=== PATIENT | female | born 1975 | race Caucasian/White ===

== ENCOUNTER → 2016-08-06 | Outpatient (CLI) | payer MEDICAID ==
--- NOTE | 2016-08-07 13:43 | MM ---
Reason for exam: screening (asymptomatic). Last mammogram was performed 5 years and 4 months ago. History: Family history of breast cancer in paternal grandmother. Took hormonal contraceptives for 15 years beginning at age 17. Physical Findings: A clinical breast exam by your physician is recommended on an annual basis and results should be correlated with mammographic findings. MG 3D Screening Mammo W/Cad Bilateral CC and MLO view(s) were taken. Prior study comparison: April 19, 2011, [facility] DIGITAL BILATERAL MAMMOGRAM w/CAD. April 08, 2011, bilateral digital screening mammo w/CAD. There are scattered fibroglandular densities. No significant changes when compared with prior studies. ASSESSMENT: Benign, BI-RAD 2 RECOMMENDATION: Routine screening mammogram of both breasts in 1 year.
== END | disposition home or self-care (01) ==
LOC: RADMAMWWP 12:18
PROVIDERS: ATTEND Obstetrics & Gynecology
DX: Z12.31 Encounter for screening mammogram for malignant neoplasm of breast (principal)
CPT/HCPCS: 77063; G0202

== ENCOUNTER → 2016-08-22 | Outpatient (CLI) | payer MEDICAID ==
[2016-08-22 07:39] LABS: Basophils # (A) 0.1 k/uL (0-0.2); Basophils % (A) 1 %; CH 30.5; CHCM 35.1; Eosinophils # (A) 0.1 k/uL (0-0.7); Eosinophils % (A) 2 %; HCT 38.3 % (34.0-46.0); HDW 2.52; HGB 13.4 gm/dL (11.4-16.0); Luc # (Auto) 0.16; Luc % (Auto) 2; Lymphocytes # (A) 2.8 k/uL (1.0-4.8); Lymphocytes % (A) 39 %; MCH 30.5 pg (25.0-35.0); MCHC 34.9 g/dL (31.0-37.0); MCV 87.3 fL (80.0-100.0); Mean Platelet Volume 7.3; Monocytes # (A) 0.4 k/uL (0-1.0); Monocytes % (A) 5 %; Neutrophils # (A) 3.6 k/uL (1.3-7.7); Neutrophils % (A) 51 %; RBC 4.39 m/uL (3.80-5.40); RDW 12.5 % (11.5-15.5); WBC 7.1 k/uL (3.8-10.6); WBC (Perox) 6.99
[2016-08-22 07:49] LABS: ALT 24 U/L (9-52); AST 18 U/L (14-36); Alkaline Phosphatase 53 U/L (38-126); Anion Gap 8 mmol/L; Blood Urea Nitrogen 11 mg/dL (7-17); Calcium 9.6 mg/dL (8.4-10.2); Carbon Dioxide 29 mmol/L (22-30); Chloride 104 mmol/L (98-107); Cholesterol 191 mg/dL (<200); Glucose 84 mg/dL (74-99); HDL Cholesterol 102 mg/dL (40-60); Non-African American GFR(MDRD) >60 (>60 ml/min/1.73 sqM); Potassium 4.6 mmol/L (3.5-5.1); Sodium 141 mmol/L (137-145); Total Bilirubin 0.4 mg/dL (0.2-1.3); Total Protein 6.8 g/dL (6.3-8.2); Triglycerides 77 mg/dL (<150)
== END | disposition home or self-care (01) ==
LOC: LABWHC1 07:14
PROVIDERS: ATTEND Family Medicine
DX: E55.9 Vitamin D deficiency, unspecified (principal); M06.9 Rheumatoid arthritis, unspecified
CPT/HCPCS: 36415; 80053; 80061; 82306; 85025

== ENCOUNTER → 2017-05-02 | Outpatient (CLI) | payer MEDICAID ==
--- NOTE | 2017-05-02 10:14 | MR ---
EXAMINATION TYPE: MR knee RT wo con DATE OF EXAM: 05/02/2017 COMPARISON: 08/12/2015 HISTORY: Pain in right knee, Prior arthroscopic surgery TECHNIQUE: Multiplanar, multisequence imaging of the right knee is performed without IV contrast. FINDINGS: There is a area of marrow edema or contusion involving the posterior medial tibial plateau. There is a linear area of abnormal signal extending along the medial tibial plateau which may repres ent a macrotrabecular fracture. Medial collateral and lateral collateral ligaments are intact. There is nonvisualization of the anterior cruciate ligament. Posterior cruciate ligament intact. There is marked thinning of the medial patellar facet articular cartilage compatible with chondromala marie extending to the apex. No focal free fragment identified. Patellar and quadriceps tendons intact. Tiny amount of fluid in the suprapatellar bursa and joint spa ce of the knee. No definite meniscal tear. No sizable popliteal fossa cyst. IMPRESSION: 1. Postsurgical change 2. Large area of marrow edema involving the posterior tibia may be reactive however, there is a linea r band of abnormal signal below the articular surface which could be reactive secondary to absence of the ACL. On other etiologies include microtrabecular fracture or stress injury. Correlate clinically . 3. Absence of the ACL correlate for previous surgery 4. 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
== END | disposition home or self-care (01) ==
LOC: RADMRIMAIN 09:09
PROVIDERS: ATTEND Orthopaedic Surgery
DX: M22.41 Chondromalacia patellae, right knee (principal); Z98.890 Other specified postprocedural states

== ENCOUNTER → 2017-10-01 | Outpatient (CLI) | payer MEDICAID ==
[2017-10-01 07:49] LABS: Basophils % (A) 1 %; Eosinophils # (A) 0.1 k/uL (0-0.7); Eosinophils % (A) 2 %; HCT 39.2 % (34.0-46.0); HGB 13.4 gm/dL (11.4-16.0); Lymphocytes # (A) 2.1 k/uL (1.0-4.8); Lymphocytes % (A) 33 %; MCH 29.5 pg (25.0-35.0); MCHC 34.3 g/dL (31.0-37.0); MCV 86.1 fL (80.0-100.0); Mean Platelet Volume 7.2; Monocytes # (A) 0.4 k/uL (0-1.0); Monocytes % (A) 6 %; Neutrophils # (A) 3.6 k/uL (1.3-7.7); Neutrophils % (A) 57 %; Platelet Count 270 k/uL (150-450); RBC 4.55 m/uL (3.80-5.40); RDW 12.2 % (11.5-15.5); WBC 6.3 k/uL (3.8-10.6)
[2017-10-01 08:02] LABS: Albumin 4.1 g/dL (3.5-5.0); Calcium 9.5 mg/dL (8.4-10.2); Potassium 4.7 mmol/L (3.5-5.1); Total Bilirubin 0.3 mg/dL (0.2-1.3); Total Protein 6.3 g/dL (6.3-8.2)
[2017-10-01 08:08] LABS: T4, Free (Free Thyroxine) 0.93 ng/dL (0.78-2.19)
== END | disposition home or self-care (01) ==
LOC: LABWHC1 07:11
PROVIDERS: ATTEND Physician Assistant
DX: M06.9 Rheumatoid arthritis, unspecified (principal)
CPT/HCPCS: 36415; 80053; 80061; 84439; 84443; 85025

== ENCOUNTER → 2017-12-16 | Outpatient (CLI) | payer MEDICAID ==
[2017-12-16 09:54] LABS: Basophils % (A) 0 %; Eosinophils # (A) 0.1 k/uL (0-0.7); Eosinophils % (A) 1 %; HCT 37.2 % (34.0-46.0); HGB 12.9 gm/dL (11.4-16.0); Lymphocytes # (A) 1.2 k/uL (1.0-4.8); Lymphocytes % (A) 23 %; MCH 30.3 pg (25.0-35.0); MCHC 34.8 g/dL (31.0-37.0); MCV 87.1 fL (80.0-100.0); Mean Platelet Volume 7.3; Monocytes # (A) 0.3 k/uL (0-1.0); Monocytes % (A) 5 %; Neutrophils # (A) 3.7 k/uL (1.3-7.7); Neutrophils % (A) 69 %; Platelet Count 222 k/uL (150-450); RBC 4.27 m/uL (3.80-5.40); RDW 12.4 % (11.5-15.5); WBC 5.3 k/uL (3.8-10.6)
[2017-12-16 10:18] LABS: Potassium 4.3 mmol/L (3.5-5.1)
== END | disposition home or self-care (01) ==
LOC: LABWHC1 09:17
PROVIDERS: ATTEND Orthopaedic Surgery
DX: Z01.812 Encounter for preprocedural laboratory examination (principal); M23.611 Other spontaneous disruption of anterior cruciate ligament of right knee
CPT/HCPCS: 36415; 80051; 85025

== ENCOUNTER → 2018-01-14 | Outpatient (CLI) | payer MEDICAID ==
--- NOTE | 2018-01-14 15:53 | BD ---
EXAMINATION TYPE: Axial Bone Density DATE OF EXAM: 01/14/2018 COMPARISON: 2012 CLINICAL HISTORY: post menopausal Height: 5'4 Weight: 148 FRAX RISK QUESTIONS: History of Fracture in Adulthood: y Secondary Osteoporosis: 3. Menopause before 45: y Rheumatoid Arthritis: y RISK FACTORS HISTORY OF: Postmenopausal woman: y Take estrogen and/or progesterone medications: y How lon years Frequent falls: y MEDICATIONS: Thyroid Medications: Which medication: Levothyroxine How Lon months Additional Medications: rheumatoid, gerd Additional History: EXAM MEASUREMENTS: Bone mineral densitometry was performed using the MeBeam System. Bone mineral density as measured about the Lumbar spine is: ----- L1-L4(G/cm2): 1.416 T Score Values are as follows: ----- L2: 1.5 ----- L3: 3.1 ----- L4: 1.9 ----- L1-L4: 2.0 Bone mineral density has: Increased 4.5 % since study of: 12/22/2012 Bone mineral density about the R hip (g/cm2): 1.024 Bone mineral density about the L hip (g/cm2): 1.054 T Score values are as follows: -----R Neck: -0.1 -----L Neck: 0.1 -----R Total: 0.0 -----L Total: 0.4 Bone mineral density has: Increased 2.9% since study of: 12/22/2012 IMPRESSION: No evidence for osteoporosis or osteopenia. NOTE: T-SCORE=SD OF THE YOUNG ADULT MEAN.
--- NOTE | 2018-01-16 12:27 | MM ---
Reason for exam: screening (asymptomatic). Last mammogram was performed 1 year and 5 months ago. History: Patient is postmenopausal and history of other cancer. Family history of breast cancer in paternal grandmother. Took hormonal contraceptives for 15 years beginning at age 17. Physical Findings: A clinical breast exam by your physician is recommended on an annual basis and results should be correlated with mammographic findings. MG 3D Screening Mammo W/Cad Bilateral CC and MLO view(s) were taken. Prior study comparison: August 06, 2016, bilateral MG 3d screening mammo w/cad. April 19, 2011, [facility] BILATERAL MAMMOGRAM w/CAD. The breast tissue is heterogeneously dense. This may lower the sensitivity of mammography. No suspicious abnormality. No significant changes when compared with prior studies. ASSESSMENT: Negative, BI-RAD 1 RECOMMENDATION: Routine screening mammogram of both breasts in 1 year.
== END | disposition home or self-care (01) ==
LOC: RADMAMWWP 15:04
PROVIDERS: ATTEND Obstetrics & Gynecology
DX: Z12.31 Encounter for screening mammogram for malignant neoplasm of breast (principal); Z13.820 Encounter for screening for osteoporosis; N95.1 Menopausal and female climacteric states
CPT/HCPCS: 77063; 77067; 77080

== ENCOUNTER → 2018-11-12 | Outpatient (CLI) | payer MEDICAID ==
--- NOTE | 2018-11-12 13:55 | US ---
EXAMINATION TYPE: US venous doppler duplex LE DATE OF EXAM: 11/12/2018 1:29 PM COMPARISON: NONE CLINICAL HISTORY: M79.662 Pain in left lower leg. SIDE PERFORMED: Bilateral TECHNIQUE: The lower extremity deep venous system is examined utilizing real time linear array sonog jordin with graded compression, doppler sonography and color-flow sonography. VESSELS IMAGED: External Iliac Vein (EIV) Common Femoral Vein Deep Femoral Vein Greater Saphenous Vein * Femoral Vein Popliteal Vein Small Saphenous Vein * Proximal Calf Veins (* superficial vessels) Grayscale, color doppler, spectral doppler imaging performed of the deep veins of the lower extremiti es. There is normal flow, compressibility, vascular waveforms. Right Leg: Negative for DVT Left Leg: Negative for DVT Preliminary phoned to office immediately following exam. IMPRESSION: No sonographic evidence of deep venous thrombosis within either of the visualized bilate ral lower extremities.
== END | disposition home or self-care (01) ==
LOC: RADUSWWP 12:22
PROVIDERS: ATTEND Family Medicine
DX: M79.662 Pain in left lower leg (principal)
CPT/HCPCS: 93970

== ENCOUNTER → 2019-02-19 | Outpatient (CLI) | payer MEDICAID ==
--- NOTE | 2019-02-23 11:22 | MM ---
Reason for exam: screening (asymptomatic). Last mammogram was performed 1 year and 1 month ago. History: Patient is postmenopausal and history of other cancer. Family history of breast cancer in paternal grandmother at age 90. Took hormonal contraceptives for 15 years beginning at age 17. Took estrogen for 7 years beginning at age 37. Physical Findings: A clinical breast exam by your physician is recommended on an annual basis and results should be correlated with mammographic findings. MG Screening Mammo w CAD Bilateral CC and MLO view(s) were taken. Prior study comparison: January 14, 2018, bilateral MG 3d screening mammo w/cad. August 06, 2016, bilateral MG 3d screening mammo w/cad. There are scattered fibroglandular densities. Asymmetric density medial right CC view is increased, possible superimposition shadow. ASSESSMENT: Incomplete: need additional imaging evaluation, BI-RAD 0 RECOMMENDATION: Special view mammogram of the right breast. (3D) If lesion persists on supplemental views, image directed ultrasound is recommended. [facility] will attempt to contact patient to return for supplemental views and ultrasound if indicated.
== END | disposition home or self-care (01) ==
LOC: RADMAMWWP 14:41
PROVIDERS: ATTEND Obstetrics & Gynecology
DX: Z12.31 Encounter for screening mammogram for malignant neoplasm of breast (principal)
CPT/HCPCS: 77067

== ENCOUNTER → 2019-03-05 | Outpatient (CLI) | payer MEDICAID ==
--- NOTE | 2019-03-05 11:58 | MM ---
Reason for exam: additional evaluation requested from abnormal screening. Last mammogram was performed less than 1 month ago. History: Patient is postmenopausal and history of other cancer. Family history of breast cancer in paternal grandmother at age 90. Took hormonal contraceptives for 15 years beginning at age 17. Took estrogen for 7 years beginning at age 37. Physical Findings: Nurse did not find any significant physical abnormalities on exam. MG 3D Work Up W/Cad RT Spot compression CC and LM view(s) were taken of the right breast. Prior study comparison: February 19, 2019, bilateral MG screening mammo w CAD. January 14, 2018, bilateral MG 3d screening mammo w/cad. The breast tissue is heterogeneously dense. This may lower the sensitivity of mammography. The previously seen abnormality resolves on additional views and appears as fibroglandular tissue compatible with summation. These results were verbally communicated with the patient and result sheet given to the patient on 03/05/19. ASSESSMENT: Negative, BI-RAD 1 RECOMMENDATION: Return to routine screening mammogram schedule for both breasts.
== END | disposition home or self-care (01) ==
LOC: RADMAMWWP 10:31
PROVIDERS: ATTEND Obstetrics & Gynecology
DX: R92.8 Other abnormal and inconclusive findings on diagnostic imaging of breast (principal)
CPT/HCPCS: 77061; 77065

== ENCOUNTER → 2019-03-12 | Outpatient (CLI) | payer MEDICAID ==
[2019-03-12 07:51] LABS: Basophils % (A) 0 %; Eosinophils % (A) 0 %; HCT 40.1 % (34.0-46.0); HGB 13.4 gm/dL (11.4-16.0); Lymphocytes # (A) 1.5 k/uL (1.0-4.8); Lymphocytes % (A) 12 %; MCH 29.7 pg (25.0-35.0); MCHC 33.4 g/dL (31.0-37.0); MCV 88.9 fL (80.0-100.0); Mean Platelet Volume 7.9; Monocytes # (A) 0.3 k/uL (0-1.0); Monocytes % (A) 3 %; Neutrophils % (A) 84 %; Platelet Count 272 k/uL (150-450); RBC 4.51 m/uL (3.80-5.40); RDW 12.1 % (11.5-15.5)
[2019-03-12 18:57] LABS: African American GFR (CKD) 104.7 (60.0-200.0); Albumin 4.7 g/dL (3.80-4.90); Albumin/Globulin Ratio 2.61 (1.60-3.17); Anion Gap 11.2 mmol/L (4.00-12.00); BUN/Creat Ratio 18.75 Ratio (12.00-20.00); Calcium 9.5 mg/dL (8.7-10.3); Carbon Dioxide 27.8 mmol/L (21.6-31.8); Chol/HDL Ratio 1.71; Globulin 1.8 g/dL (1.6-3.3); LDL Cholesterol,Calculated 66.8 mg/dL (0.0-131.0); Non-African American GFR(CKD) 90.3 (60.0-200.0); Potassium 4.4 mmol/L (3.5-5.5); Total Bilirubin 0.4 mg/dL (0.2-1.2); Total Protein 6.5 g/dL (6.2-8.2); VLDL Calculation 11.2 mg/dL (5.00-40.00)
== END | disposition home or self-care (01) ==
LOC: LABWHC1 06:50
PROVIDERS: ATTEND Family Medicine
DX: E78.5 Hyperlipidemia, unspecified (principal)
CPT/HCPCS: 36415; 80053; 80061; 84443; 85025

== ENCOUNTER → 2019-03-22 | Outpatient (CLI) | payer MEDICAID ==
--- NOTE | 2019-03-23 06:58 | MR ---
EXAMINATION TYPE: MR hip LT wo con DATE OF EXAM: 03/22/2019 COMPARISON: Outside left hip x-ray November 24, 2018. HISTORY: Lt hip pain x 4 mos Standard multiplanar, multisequence MRI departmental protocol Multiplanar, multisequence images of the pelvis focus on the left hip were acquired. FINDINGS: There is mild axial joint space loss in both hips. There is mild acetabular spurring presen t bilaterally. There are small hip joint effusions slightly larger on the left. Left hip shows asymme tric subchondral cystic change involving the superior lateral acetabulum coronal image 8 measuring ne magali 10 mm transversely. This corresponds to sagittal image 15 measuring 7 mm AP diameter. Bone marro w signal intensity is preserved without suspicious edema. No serpiginous low T1 signal to suggest pablo scular necrosis. Femoral head shape is maintained. Small degree of fluid signal level of the greater trochanters bilaterally greater on the left most prominent coronal image 12 near posterior fiber inse rtion. No suspicious groin hernia or adenopathy is present bilaterally. Muscle bulk bilateral thighs is symm etric and felt within normal limits. Uterus is surgically absent or markedly atrophic. No suspicious bowel dilatation. No concerning pelvi c fluid collection. Urinary bladder is felt within normal limits. IMPRESSION: Asymmetric degenerative change to the left hip as detailed above. [id number] left g reater than right bilateral greater trochanteric bursitis is suspected.
== END | disposition home or self-care (01) ==
LOC: RADMRIMAIN 16:54
PROVIDERS: ATTEND Orthopaedic Surgery
DX: M16.12 Unilateral primary osteoarthritis, left hip (principal)

== ENCOUNTER 2019-04-21 12:04 | Emergency (ER) | payer MEDICAID ==
[2019-04-21 12:10] VITALS: RESP 18; TEMP 98
[2019-04-21 12:23] LABS: Glucose,Whole Blood 82 mg/dL (75-99)
--- NOTE | 2019-04-21 12:54 | ED ---
General Adult HPI - General Chief complaint: Eye Problems Stated complaint: blurred vision Time Seen by Provider: 04/21/19 12:35 Source: patient, RN notes reviewed, old records reviewed Mode of arrival: wheelchair Limitations: no limitations - History of Present Illness Initial comments: This is a 44-year-old female who presents emergency Department with a past medical history significant for rheumatoid arthritis. Patient states today while she was upstairs she had a little area that was flickering with triangle shaped and eventually expanded to form a crescent shape and eventually the crescent shape expanded until a 1 out of her peripheral vision. Patient states when she shut her eye she could still see it. Patient states it was mostly in her right lateral peripheral vision. Patient states she had a mild headache after that. Patient's blood pressure was taken at that time it was mildly elevated. Patient states she normally does not have high blood pressure. Patient states now she feels a little anxious but doesn't have a headache and has no numbness or weakness and had no speech disturbance. Patient denies any recent fever chills or cough per patient denies any abdominal pain patient denies nausea or vomiting. Patient denies any drug use or any [id number] medication use. - Related Data Home Medications Medication Instructions Recorded Confirmed Estradiol 1 mg PO DAILY 01/22/16 04/21/19 Hydroxychloroquine Sulfate 200 mg PO DAILY 01/22/16 04/21/19 [Plaquenil] Pantoprazole [Protonix] 40 mg PO DAILY 01/22/16 04/21/19 traMADol HCL [Tramadol HCl] 50 mg PO TID PRN 01/22/16 04/21/19 Cetirizine HCl [Zyrtec] 10 mg PO DAILY 04/21/19 04/21/19 Ibuprofen [Motrin Ib] 800 mg PO Q8H PRN 04/21/19 04/21/19 Levothyroxine Sodium [Synthroid] 75 mcg PO DAILY 04/21/19 04/21/19 valACYclovir HCL [Valtrex] 1,000 mg PO Q12H PRN 04/21/19 04/21/19 Allergies Allergy/AdvReac Type Severity Reaction Status Date / Time adhesive Allergy Rash/Hives Verified 04/21/19 14:25 nickel Allergy Unknown Verified 04/21/19 14:25 metals Allergy Rash/Hives Uncoded 12/25/17 06:32 Review of Systems ROS Statement: Those systems with pertinent positive or pertinent negative responses have been documented in the HPI. ROS Other: All systems not noted in ROS Statement are negative. Past Medical History Past Medical History: Osteoarthritis (OA), Rheumatoid Arthritis (RA) History of Any Multi-Drug Resistant Organisms: None Reported Past Surgical History: Hysterectomy, Orthopedic Surgery Additional Past Surgical History / Comment(s): right knee scope x2, ACL repair Past Anesthesia/Blood Transfusion Reactions: Previous Problems w/ Anesthesia Additional Past Anesthesia/Blood Transfusion Reaction / Comment(s): hypoglycemia Past Psychological History: No Psychological Hx Reported Smoking Status: Former smoker Past Alcohol Use History: None Reported Past Drug Use History: None Reported - Past Family History Father Family Medical History: Cancer Additional Family Medical History / Comment(s): lymphoma General Exam - General Exam Comments Initial Comments: GENERAL: Patient is well-developed and well-nourished. Patient is nontoxic and well- hydrated and is in no acute distress. ENT: Neck is soft and supple. No significant lymphadenopathy is noted. Oropharynx is clear. Moist mucous membranes. Neck has full range of motion without eliciting any pain. EYES: The sclera were anicteric and conjunctiva were pink and moist. Extraocular movements were intact and pupils were equal round and reactive to light. Eyelids were unremarkable. PULMONARY: Unlabored respirations. Good breath sounds bilaterally. No audible rales rhonchi or wheezing was noted. CARDIOVASCULAR: There is a regular rate and rhythm without any murmurs gallops or rubs. ABDOMEN: Soft and nontender with normal bowel sounds. SKIN: Skin is clear with no lesions or rashes and otherwise unremarkable. NEUROLOGIC: Patient is alert and oriented x3. Cranial nerves II through XII are grossly intact. Motor and sensory are also intact. Normal speech, volume and content. Symmetrical smile. MUSCULOSKELETAL: Normal extremities with adequate strength and full range of motion. LYMPHATICS: No significant lymphadenopathy is noted PSYCHIATRIC: Normal psychiatric evaluation. Limitations: no limitations Course Vital Signs 04/21/19 04/21/19 04/21/19 12:05 12:24 14:29 Temperature 98.0 F Pulse Rate 83 79 66 Respiratory 18 18 18 Rate Blood Pressure 158/85 150/99 124/78 O2 Sat by Pulse 98 100 98 Oximetry Medical Decision Making - Medical Decision Making EKG shows normal sinus rhythm at 82 bpm CA interval 156 QRS is 98 QT interval 382 QTC is 446 per patient's EKG shows no ST segment elevation or depression Computed tomography scan showed no acute abnormality. Patient had no further symptoms while in the emergency department. Patient was able ambulate without problem and she was a symptomatically upon discharge - Lab Data Result diagrams: 04/21/19 13:01 04/21/19 13:01 Lab Results 04/21/19 04/21/19 04/21/19 Range/Units 12:22 13:01 13:01 WBC 9.0 (3.8-10.6) k/uL RBC 4.73 (3.80-5.40) m/uL Hgb 13.9 (11.4-16.0) gm/dL Hct 40.8 (34.0-46.0) % MCV 86.2 (80.0-100.0) fL MCH 29.3 (25.0-35.0) pg MCHC 34.0 (31.0-37.0) g/dL RDW 12.2 (11.5-15.5) % Plt Count 289 (150-450) k/uL Neutrophils % 67 % Lymphocytes % 25 % Monocytes % 5 % Eosinophils % 1 % Basophils % 1 % Neutrophils # 6.0 (1.3-7.7) k/uL Lymphocytes # 2.2 (1.0-4.8) k/uL Monocytes # 0.4 (0-1.0) k/uL Eosinophils # 0.1 (0-0.7) k/uL Basophils # 0.1 (0-0.2) k/uL Sodium 136 L (137-145) mmol/L Potassium 3.9 (3.5-5.1) mmol/L Chloride 99 (98-107) mmol/L Carbon Dioxide 27 (22-30) mmol/L Anion Gap 10 mmol/L BUN 15 (7-17) mg/dL Creatinine 0.75 (0.52-1.04) mg/dL Est GFR (CKD-EPI)AfAm >90 (>60 ml/min/1.73 sqM) Est GFR (CKD-EPI)NonAf >90 (>60 ml/min/1.73 sqM) Glucose 87 (74-99) mg/dL POC Glucose (mg/dL) 82 (75-99) mg/dL POC Glu Veneer Stapler ID Salgat, Diane Calcium 9.5 (8.4-10.2) mg/dL Magnesium 1.9 (1.6-2.3) mg/dL Total Bilirubin 0.3 (0.2-1.3) mg/dL AST 22 (14-36) U/L ALT 12 (4-34) U/L Alkaline Phosphatase 70 (38-126) U/L Total Protein 7.3 (6.3-8.2) g/dL Albumin 4.6 (3.5-5.0) g/dL Urine Opiates Screen (NotDetected) Ur Oxycodone Screen (NotDetected) Urine Methadone Screen (NotDetected) Ur Propoxyphene Screen (NotDetected) Ur Barbiturates Screen (NotDetected) U Tricyclic Antidepress (NotDetected) Ur Phencyclidine Scrn (NotDetected) Ur Amphetamines Screen (NotDetected) U Methamphetamines Scrn (NotDetected) U Benzodiazepines Scrn (NotDetected) Urine Cocaine Screen (NotDetected) U Marijuana (THC) Screen (NotDetected) 04/21/19 Range/Units 14:38 WBC (3.8-10.6) k/uL RBC (3.80-5.40) m/uL Hgb (11.4-16.0) gm/dL Hct (34.0-46.0) % MCV (80.0-100.0) fL MCH (25.0-35.0) pg MCHC (31.0-37.0) g/dL RDW (11.5-15.5) % Plt Count (150-450) k/uL Neutrophils % % Lymphocytes % % Monocytes % % Eosinophils % % Basophils % % Neutrophils # (1.3-7.7) k/uL Lymphocytes # (1.0-4.8) k/uL Monocytes # (0-1.0) k/uL Eosinophils # (0-0.7) k/uL Basophils # (0-0.2) k/uL Sodium (137-145) mmol/L Potassium (3.5-5.1) mmol/L Chloride (98-107) mmol/L Carbon Dioxide (22-30) mmol/L Anion Gap mmol/L BUN (7-17) mg/dL Creatinine (0.52-1.04) mg/dL Est GFR (CKD-EPI)AfAm (>60 ml/min/1.73 sqM) Est GFR (CKD-EPI)NonAf (>60 ml/min/1.73 sqM) Glucose (74-99) mg/dL POC Glucose (mg/dL) (75-99) mg/dL POC Glu Veneer Stapler ID Calcium (8.4-10.2) mg/dL Magnesium (1.6-2.3) mg/dL Total Bilirubin (0.2-1.3) mg/dL AST (14-36) U/L ALT (4-34) U/L Alkaline Phosphatase (38-126) U/L Total Protein (6.3-8.2) g/dL Albumin (3.5-5.0) g/dL Urine Opiates Screen Not Detected (NotDetected) Ur Oxycodone Screen Not Detected (NotDetected) Urine Methadone Screen Not Detected (NotDetected) Ur Propoxyphene Screen Not Detected (NotDetected) Ur Barbiturates Screen Not Detected (NotDetected) U Tricyclic Antidepress Not Detected (NotDetected) Ur Phencyclidine Scrn Not Detected (NotDetected) Ur Amphetamines Screen Not Detected (NotDetected) U Methamphetamines Scrn Not Detected (NotDetected) U Benzodiazepines Scrn Not Detected (NotDetected) Urine Cocaine Screen Not Detected (NotDetected) U Marijuana (THC) Screen Not Detected (NotDetected) Disposition Clinical Impression: Visual disturbance, [place], Headache, Hypertension Disposition: HOME SELF-CARE Condition: Good Instructions (If sedation given, give patient instructions): General Headache (ED), Hypertension (ED) Additional Instructions: 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 Patient should return if symptoms return or for any worsening symptoms Is patient prescribed a controlled substance at d/c from ED?: No Referrals: Husam Reaves MD [Primary Care Provider] - 1-2 days Time of Disposition: 15:19
[2019-04-21] MEDS ORDERED: LORazepam 2 MG/ML INJ IV STA (13:06)
[2019-04-21] MEDS ORDERED: SODIUM CHLORIDE 0.9% 500 ML 500 ML IV ONE (13:06)
[2019-04-21 13:19] LABS: Basophils # (A) 0.1 k/uL (0-0.2); Basophils % (A) 1 %; Eosinophils # (A) 0.1 k/uL (0-0.7); Eosinophils % (A) 1 %; HCT 40.8 % (34.0-46.0); HGB 13.9 gm/dL (11.4-16.0); Lymphocytes # (A) 2.2 k/uL (1.0-4.8); Lymphocytes % (A) 25 %; MCH 29.3 pg (25.0-35.0); MCV 86.2 fL (80.0-100.0); Mean Platelet Volume 7.4; Monocytes # (A) 0.4 k/uL (0-1.0); Monocytes % (A) 5 %; Neutrophils % (A) 67 %; Platelet Count 289 k/uL (150-450); RBC 4.73 m/uL (3.80-5.40); RDW 12.2 % (11.5-15.5)
[2019-04-21 13:36] LABS: ALT 12 U/L (4-34); AST 22 U/L (14-36); African American GFR (CKD) >90 (>60 ml/min/1.73 sqM); Albumin 4.6 g/dL (3.5-5.0); Alkaline Phosphatase 70 U/L (38-126); Anion Gap 10 mmol/L; Blood Urea Nitrogen 15 mg/dL (7-17); Calcium 9.5 mg/dL (8.4-10.2); Carbon Dioxide 27 mmol/L (22-30); Chloride 99 mmol/L (98-107); Glucose 87 mg/dL (74-99); Magnesium 1.9 mg/dL (1.6-2.3); Non-African American GFR(CKD) >90 (>60 ml/min/1.73 sqM); Potassium 3.9 mmol/L (3.5-5.1); Sodium 136 mmol/L (137-145); Total Bilirubin 0.3 mg/dL (0.2-1.3); Total Protein 7.3 g/dL (6.3-8.2)
--- NOTE | 2019-04-21 14:21 | CT ---
EXAMINATION TYPE: CT brain wo con DATE OF EXAM: 04/21/2019 COMPARISON: NONE HISTORY: headache, high blood pressure, visual disturbance CT DLP: 995.8 mGycm. Automated Exposure Control for Dose Reduction was Utilized. TECHNIQUE: CT scan of the head is performed without contrast. FINDINGS: There is no acute intracranial hemorrhage, mass effect, or midline shift identified. No suspicious extra-axial fluid collection. The ventricles and sulci are within normal limits in size fo r the patient's age. The globes are intact and the visualized sinuses are clear. IMPRESSION: No acute intracranial hemorrhage, mass effect, or midline shift is seen.
[2019-04-21 14:31] VITALS: BP 124/78; PULSE 66
[2019-04-21 15:02] LABS: Amphetamine Screen,Urine Not Detected (NotDetected); Barbiturate Screen,Urine Not Detected (NotDetected); Benzodiazepines Screen,Urine Not Detected (NotDetected); Cocaine Screen,Urine Not Detected (NotDetected); Methadone Screen, Urine Not Detected (NotDetected); Opiate Screen,Urine Not Detected (NotDetected); Oxycodone Screen, Urine Not Detected (NotDetected); Phencyclidine Screen,Urine Not Detected (NotDetected); Tricyclic Antidepressant,Urine Not Detected (NotDetected); Urn Cannabinoid Scrn Not Detected (NotDetected)
== END 2019-04-21 15:34 | disposition home or self-care (01) ==
LOC: EC 12:04
DX: H53.459 Other localized visual field defect, unspecified eye (principal); I10 Essential (primary) hypertension; R51 Headache; M06.9 Rheumatoid arthritis, unspecified; Z79.3 Long term (current) use of hormonal contraceptives; Z79.899 Other long term (current) drug therapy; Z87.891 Personal history of nicotine dependence; Z91.048 Other nonmedicinal substance allergy status; Z98.890 Other specified postprocedural states
CPT/HCPCS: 36415; 93005; 80053; 83735; 85025; 80306; 70450; 99285; 96374; J2060

== ENCOUNTER → 2019-10-15 | Outpatient (CLI) | payer MEDICAID ==
[2019-10-15 09:22] LABS: Basophils % (A) 1 %; Eosinophils # (A) 0.1 k/uL (0-0.7); Eosinophils % (A) 1 %; HCT 39.9 % (34.0-46.0); HGB 12.9 gm/dL (11.4-16.0); Lymphocytes # (A) 1.4 k/uL (1.0-4.8); Lymphocytes % (A) 27 %; MCH 28.8 pg (25.0-35.0); MCHC 32.3 g/dL (31.0-37.0); MCV 89.2 fL (80.0-100.0); Mean Platelet Volume 7.5; Monocytes # (A) 0.2 k/uL (0-1.0); Monocytes % (A) 5 %; Neutrophils # (A) 3.3 k/uL (1.3-7.7); Neutrophils % (A) 64 %; Platelet Count 229 k/uL (150-450); RBC 4.48 m/uL (3.80-5.40); RDW 12.4 % (11.5-15.5); WBC 5.1 k/uL (3.8-10.6)
[2019-10-15 17:00] LABS: African American GFR (CKD) 90.8 (60.0-200.0); Albumin 4.2 g/dL (3.80-4.90); Albumin/Globulin Ratio 2.21 (1.60-3.17); Anion Gap 8.7 mmol/L (4.00-12.00); BUN/Creat Ratio 11.11 Ratio (12.00-20.00); Calcium 9.5 mg/dL (8.7-10.3); Carbon Dioxide 27.3 mmol/L (21.6-31.8); Chol/HDL Ratio 1.94; Globulin 1.9 g/dL (1.6-3.3); Non-African American GFR(CKD) 78.3 (60.0-200.0); Potassium 4.1 mmol/L (3.5-5.5); Total Bilirubin 0.3 mg/dL (0.2-1.2); Total Protein 6.1 g/dL (6.2-8.2)
[2019-10-15 17:08] LABS: T4, Free (Free Thyroxine) 1.2 ng/dL (0.80-1.80)
== END | disposition home or self-care (01) ==
LOC: LABWHC1 07:50
PROVIDERS: ATTEND Family Medicine
DX: Z20.9 Contact with and (suspected) exposure to unspecified communicable disease (principal); Z00.00 Encounter for general adult medical examination without abnormal findings
CPT/HCPCS: 36415; 80053; 80061; 84439; 84443; 85025; 86803

== ENCOUNTER → 2021-09-24 | Outpatient (CLI) | payer OTHER ==
--- NOTE | 2021-09-25 17:26 | MM ---
Reason for Exam: Screening (asymptomatic). Last mammogram was performed 2 year(s) and 7 month(s) ago. Patient History: Menarche at age 13. Patient has no children. Left ovary removed at age 37. Right ovary removed at age 37. Hysterectomy at age 37. Postmenopausal. Currently using Estrogen, beginning at age 37 for 7 years. Hormonal Contraceptives, starting at age 17 for 15 years. Paternal grandmother had breast cancer, age 90. Risk Values: Smitha 5 year model risk: 0.9%. NCI Lifetime model risk: 10.6%. Prior Study Comparison: 01/14/2018 Bilateral Screening Mammogram, [facility]. 02/19/2019 Bilateral Screening Mammogram, [facility]. 03/05/2019 Right Diagnostic Mammogram, [facility]. Tissue Density: There are scattered fibroglandular densities. Findings: Analyzed By CAD. The medial asymmetric density in the right breast remains unchanged and becomes less defined on the XCCL view. No significant change from prior exams. Unchanged small intramammary lymph node upper outer quadrant left breast. Overall Assessment: Benign, BI-RAD 2 Management: Screening Mammogram of both breasts in 1 year. 1. Patient should continue monthly self breast exams. 2. A clinical breast exam by your physician is recommended on an annual basis. 3. This exam should not preclude additional follow-up of suspicious palpable abnormalities. Electronically signed and approved by: Aislinn Flores M.D. Radiologist
== END | disposition home or self-care (01) ==
LOC: RADMAMWWP 17:04
PROVIDERS: ATTEND Obstetrics & Gynecology
DX: Z12.31 Encounter for screening mammogram for malignant neoplasm of breast (principal); Z80.3 Family history of malignant neoplasm of breast; Z78.0 Asymptomatic menopausal state
CPT/HCPCS: 77063; 77067

== ENCOUNTER → 2022-01-02 | Outpatient (CLI) | payer OTHER ==
--- NOTE | 2022-01-03 05:36 | MR ---
EXAMINATION TYPE: MR brain wo/w con DATE OF EXAM: 01/02/2022 COMPARISON: None HISTORY: Migraines with feeling of head pressure, high BP, hear pulse intermittently even when BP nor mal. CONTRAST: Standard multiplanar, multisequence MRI departmental protocol images were obtained without contrast a nd with 7 mL intravenous Gadavist gadolinium contrast. The diffusion images show no evidence of an acute infarct. Ventricles have normal size. There is no m ass effect or midline shift. No sign of intracranial hemorrhage. There are small white matter high si gnal foci in the right frontal lobe measuring up to 3 mm. There are a few scattered similar foci at t he lozano-white matter junction of the left parietal lobe. The brainstem is intact. No evidence of post erior fossa mass. Corpus callosum is intact. Sella turcica is intact. No evidence of orbital mass. The contrast images show no pathologic enhancement. There is normal enhancement of the venous sinuses . IMPRESSION: White matter high signal foci are very small and could relate to minimal microvascular ischemia. No e vidence of cortical infarct.
== END | disposition home or self-care (01) ==
LOC: RADMRIMAIN 21:45
PROVIDERS: ATTEND Family Medicine
DX: G43.909 Migraine, unspecified, not intractable, without status migrainosus (principal); I67.82 Cerebral ischemia; R90.82 White matter disease, unspecified
CPT/HCPCS: 70553; A9585

== ENCOUNTER → 2022-02-13 | Outpatient (CLI) | payer OTHER ==
--- NOTE | 2022-02-13 14:43 | FL ---
EXAMINATION TYPE: FL arthrogram hip LT DATE OF EXAM: 02/13/2022 2:16 PM CLINICAL INDICATION:Female, 47 years old with history of M25.552 PAIN IN LEFT HIP; COMPARISON: MR left hip 02/13/2022 same day. TECHNIQUE/PROCEDURE: After the procedure was explained and informed consent was obtained from the pat ient, the patient was prepped and draped in the usual sterile fashion. 1% Lidocaine was used as local anesthetic using a 25 gauge needle. A 22 gauge needle was then advanced into the left hip joint usin g fluoroscopic guidance. Approximately 9 cc of contrast was injected into the joint (an admixture of Gadavist, Isovue-300, and sterile saline). The needle was then removed and a Band-Aid was applied. The patient tolerated procedure well. The patient was then sent to the MR unit for MRI exam. Fluoroscopic time: 42 seconds Fluoroscopic images: 0 Radiographs taken: 4 FINDINGS: Contrast was seen filling the left hip joint. No extracapsular contrast collections were noted.. IMPRESSION: Successful left hip arthrogram. MRI left hip report to follow.
--- NOTE | 2022-02-14 06:36 | MR ---
EXAMINATION TYPE: MR hip LT w con DATE OF EXAM: 02/13/2022 COMPARISON: 03/22/2019 HISTORY: Left hip pain, limited movement, locking. Arthrogram. CONTRAST: Standard multiplanar, multisequence MRI departmental protocol images were obtained without contrast a nd with 1 mL intravenous Gadavist gadolinium contrast. The proximal left femur shows fairly normal signal pattern. No evidence of edema. No evidence of avas cular necrosis. There is minimal hip joint space narrowing. No focal articular cartilage defect. Ther e is a 6 mm focus of slightly increased signal on the proton density image in the acetabulum and cons istent with a small degenerative cyst. Joint capsule appears intact. There is mild acetabular spurrin g of the labrum on the lateral aspect. No evidence of filling defect in the joint capsule. Ligamentum teres appears normal. No evidence of free fluid in the pelvis. Bladder distends smoothly. Muscle bun dles around the left hip joint appear normal. No pathologic fluid collection. Iliopsoas tendon appear s intact. IMPRESSION: Minimal acetabular spurring. Otherwise negative MRI arthrogram left hip joint. No adverse change comp ared to old exam. There is an apparent 7 mm degenerative cyst in the left acetabulum on previous exam that is the same or slightly smaller.
== END | disposition home or self-care (01) ==
LOC: RADFLMAIN 13:12
PROVIDERS: ATTEND Orthopaedic Surgery
DX: M25.552 Pain in left hip (principal)
CPT/HCPCS: 27093; 73525; 73722; A9585; Q9967

== ENCOUNTER → 2023-06-24 | Outpatient (CLI) | payer OTHER ==
--- NOTE | 2023-06-24 14:52 | XR ---
EXAMINATION TYPE: XR hand complete LT DATE OF EXAM: 06/24/2023 COMPARISON: NONE HISTORY: Pain TECHNIQUE: Three views are submitted. FINDINGS: The osseous structures are intact. The joint spaces are preserved and there is no acute fracture or dislocation. Soft tissue edema surrounding the first digit. No destructive or erosive changes. IMPRESSION: 1. Soft tissue edema but no evidence of acute fracture or destructive changes.
== END | disposition home or self-care (01) ==
LOC: RADXRMAIN 14:33
PROVIDERS: ATTEND Family Medicine
DX: L03.012 Cellulitis of left finger (principal); R60.0 Localized edema

== ENCOUNTER → 2023-07-25 | Outpatient (CLI) | payer OTHER ==
--- NOTE | 2023-07-28 13:18 | MM ---
Reason for Exam: Screening (asymptomatic). Last mammogram was performed 1 year(s) and 10 month(s) ago. Patient History: Menarche at age 13. Patient has no children. Left ovary removed at age 37. Right ovary removed at age 37. Hysterectomy at age 37. Postmenopausal. Currently using Estrogen, beginning at age 37 for 7 years. Hormonal Contraceptives, starting at age 17 for 15 years. Paternal grandmother had breast cancer, age 90. Risk Values: Smitha 5 year model risk: 1.0%. NCI Lifetime model risk: 10.3%. Prior Study Comparison: 02/19/2019 Bilateral Screening Mammogram, MERGED WITH [facility]. 03/05/2019 Right Diagnostic Mammogram, MERGED WITH [facility]. 09/24/2021 Bilateral MG 3D screening mammo w/cad, MERGED WITH [facility]. Tissue Density: The breasts are heterogeneously dense, which may obscure small masses. Findings: Analyzed By CAD. There is no suspicious group of microcalcifications or new suspicious mass in either breast. Overall Assessment: Negative, BI-RAD 1 Management: Screening Mammogram of both breasts in 1 year. . Patient should continue monthly self-breast exams. A clinical breast exam by your physician is recommended on an annual basis. This exam should not preclude additional follow-up of suspicious palpable abnormalities. Note on Smitha scores and lifetime risk: 1. A Smitha score greater than 3% is considered moderate risk. If this is the case, consider specialist referral to assess eligibility for a risk reducing agent. 2. If overall lifetime risk for the development of breast cancer is 20% or higher, the patient may qualify for future screening with alternating mammogram and breast MRI. Electronically signed and approved by: Howie Pavon M.D. Radiologis
== END | disposition home or self-care (01) ==
LOC: RADMAMWWP 12:46
PROVIDERS: ATTEND Family Medicine
DX: Z12.31 Encounter for screening mammogram for malignant neoplasm of breast (principal); Z80.3 Family history of malignant neoplasm of breast; Z78.0 Asymptomatic menopausal state
CPT/HCPCS: 77063; 77067

== ENCOUNTER → 2024-04-14 | Outpatient (CLI) | payer OTHER ==
--- NOTE | 2024-04-14 14:50 | CT ---
EXAMINATION TYPE: CT brain berny wo con DATE OF EXAM: 04/14/2024 COMPARISON: Head CT dated 04/21/2019 CLINICAL INDICATION: Female, 49 years old with history of S13.4XXA G44.311 S20.229A S40.012A S30.0XXA ; PHH, trauma/ slipped on the ice today/ stiff neck TECHNIQUE: CT scan of the head and cervical spine are performed without contrast. CT DLP: 1332.[address] CTDI: mGy Automated exposure control for dose reduction was used. Findings: Head CT: Ventricles, basal cisterns and sulci over convexities within normal limits and there is no mass, mass effect or shift of midline structures. No abnormal density is seen throughout the brain parenchyma and there is no acute intra or extra-axia l hemorrhage. Posterior fossa including the brainstem, fourth ventricle and cerebellar pontine angles are grossly n ormal. The intraorbital contents appear normal and symmetric. Visualized paranasal sinuses are well aerated. CT cervical spine: Craniovertebral junction relationships and prevertebral soft tissues are normal. The cervical vertebral segments are normal in height and alignment and there is no fracture or sublux ation. There is mild disc space narrowing and spondylosis C5-6 and C6-7 levels indicating mild degenerative disc disease. The bony canal is widely patent. Secondary to mild degenerative changes of the facet joints and verte bral joints, there is mild bony neural foraminal stenosis at C3-4 and C5-6 on the right. The paraspinal soft tissues unremarkable. IMPRESSION: 1. Head CT: No acute bleed or mass effect. 2. CT cervical spine: No acute trauma. Mild Degenerative disc disease and mild osteoarthritis in the lower cervical spine as described above. [facility], , 04/14/2024 2:48 PM
--- NOTE | 2024-04-14 15:03 | XR ---
EXAMINATION TYPE: XR shoulder complete LT DATE OF EXAM: 04/14/2024 2:55 PM COMPARISON: Prior left shoulder x-ray 2014. CLINICAL INDICATION: Female, 49 years old with history of S13.4XXA G44.311 S20.229A S40.012A S30.0XXA , pain after injury. TECHNIQUE: Three views of the left shoulder are obtained. FINDINGS: There is no acute fracture/dislocation evident in the left shoulder. The acromioclavicul ar and glenohumeral joint spaces remain within normal limits. The visualized ribs are intact and unr emarkable. IMPRESSION: There is no acute fracture or dislocation in the left shoulder. [facility], , 04/14/2024 3:01 PM
--- NOTE | 2024-04-14 15:06 | XR ---
EXAMINATION TYPE: XR pelvis AP view DATE OF EXAM: 04/14/2024 2:55 PM COMPARISON: None. CLINICAL INDICATION: Female, 49 years old with history of S13.4XXA G44.311 S20.229A S40.012A S30.0XXA , injury with pain TECHNIQUE: A single AP view of the pelvis is obtained. FINDINGS: There is no acute fracture/dislocation evident in the pelvis. The hip and sacroiliac join ts appear symmetric and unremarkable. Pubic symphysis is intact. The overlying soft tissue appears u nremarkable. IMPRESSION: There is no acute fracture or dislocation in the pelvis. [facility], , 04/14/2024 3:03 PM
--- NOTE | 2024-04-14 15:07 | XR ---
EXAMINATION TYPE: XR lumbar spine 2 or 3V DATE OF EXAM: 04/14/2024 2:55 PM COMPARISON: Prior lumbar spine x-ray 2013. CLINICAL INDICATION: Female, 49 years old with history of S13.4XXA G44.311 S20.229A S40.012A S30.0XXA , pain after injury TECHNIQUE: Frontal and lateral images of the lumbar spine are obtained. FINDINGS: There are 5 lumbar type vertebral bodies redemonstrated. The lumbar spine shows stable an d satisfactory alignment without evidence of acute fracture or dislocation. Vertebral body heights an d disk space heights are stable and within normal limits. The overlying soft tissue appears unremarka ble. IMPRESSION: No acute fracture or dislocation is seen in the lumbar spine. [facility], , 04/14/2024 3:05 PM
--- NOTE | 2024-04-14 15:08 | XR ---
EXAMINATION TYPE: XR thoracic spine complete DATE OF EXAM: 04/14/2024 2:55 PM COMPARISON: None. CLINICAL INDICATION: Female, 49 years old with history of S13.4XXA G44.311 S20.229A S40.012A S30.0XXA , pain after injury TECHNIQUE: Frontal, lateral, and swimmer's view of thoracic spine are obtained. FINDINGS: Thoracic spine show satisfactory alignment without evidence of acute fracture or dislocatio n. Vertebral body heights and disc space heights are preserved. Visualized ribs are intact bilateral ly. IMPRESSION: No acute fracture or dislocation is seen in the thoracic spine. [facility], , 04/14/2024 3:06 PM
== END | disposition home or self-care (01) ==
LOC: RADCTMAIN 14:07
PROVIDERS: ATTEND Emergency Medicine
DX: S20.229A Contusion of unspecified back wall of thorax, initial encounter (principal); S13.4XXA Sprain of ligaments of cervical spine, initial encounter; S40.012A Contusion of left shoulder, initial encounter; S30.0XXA Contusion of lower back and pelvis, initial encounter; G44.311 Acute post-traumatic headache, intractable; M47.812 Spondylosis without myelopathy or radiculopathy, cervical region; M50.322 Other cervical disc degeneration at C5-C6 level
CPT/HCPCS: 70450; 72072; 72100; 72125; 72170

== ENCOUNTER → 2024-06-15 | Outpatient (CLI) | payer OTHER ==
--- NOTE | 2024-06-15 21:30 | MR ---
INDICATION: Patient age:Female; 49 years old; Reason for study: X13.4XXD; PHH. Left neck and shoulder pain, spasms, tingling in right chest startin g in right side now. COMPARISON: CT brain C-spine 04/14/2024, MR cervical spine 03/17/2013 TECHNIQUE: Multi planar, multi sequence imaging was performed of the cervical spine. No Gadolinium wa s given. FINDINGS: Alignment: The cervical vertebral bodies have preserved heights. No spondylolisthesis. Reversal of no rmal cervical lordosis. Bones: Multilevel type I Modic changes at C5-C7. Multilevel anterior osteophytosis at C5-C7. Cord: The spinal cord is unremarkable with regards to their signal intensity and morphology. Discs: Multilevel disc desiccation is present. C2-C3: No significant disc pathology. The spinal canal is patent. Uncovertebral joint hypertrophy. Ri ght-sided facet arthropathy resulting in mild right neural foraminal stenosis. The left neural forame n is patent. C3-C4: Broad-based disc bulge with minimal effacement of the anterior thecal sac. No significant cent ral canal stenosis. Right-sided facet arthropathy. Moderate right neural foramina stenosis. The left neural foramen is patent. C4-C5: Broad-based disc bulge with mild effacement of anterior thecal sac. No significant central can al stenosis. Uncovertebral joint hypertrophy. Mild bilateral neural foraminal stenosis. C5-C6: Broad-based disc bulge with moderate effacement of the anterior thecal sac and abutment of the ventral spinal cord. Resultant moderate central canal stenosis. No cord signal change at this level. Uncovertebral joint hypertrophy. Mild to moderate bilateral neural foraminal stenosis. C6-C7: Broad base disc bulge with moderate effacement of the anterior thecal sac. There is abutment o f the ventral spinal cord without signal change. Moderate central canal stenosis. Mild bilateral rony ral foraminal stenosis. Bilateral nerve root dural ectasia redemonstrated. C7-T1: Minimal broad base disc bulge without significant central canal stenosis. No neural foraminal stenosis. Bilateral nerve root dural ectasia redemonstrated. T1-T2: No significant central canal stenosis or disc herniation or disc bulge on sagittal view. There is bilateral nerve root dural ectasia redemonstrated. Other: None. IMPRESSION: Moderate multilevel disc degeneration with associated osteoarthritic changes of the cervical spine. M ost pronounced at C4-C7 as described above. [facility], , 06/15/2024 9:27 PM
== END | disposition home or self-care (01) ==
LOC: RADMRIMAIN 19:45
PROVIDERS: ATTEND Emergency Medicine
DX: S13.4XXD Sprain of ligaments of cervical spine, subsequent encounter (principal); S20.229D Contusion of unspecified back wall of thorax, subsequent encounter; S30.0XXD Contusion of lower back and pelvis, subsequent encounter; S40.012D Contusion of left shoulder, subsequent encounter; M50.323 Other cervical disc degeneration at C6-C7 level; X58.XXXD Exposure to other specified factors, subsequent encounter
CPT/HCPCS: 72141

== ENCOUNTER → 2024-08-19 | Day surgery (SDC) | payer OTHER ==
[2024-08-17 12:42] VITALS: BMI 24.3
[~2024-08-19] MED LIST: DEXAMETHASONE SOD PHOSPHATE 10 MG/ML 1 ML VIAL ONE; IOPAMIDOL M300 15ML VIAL ONE; LACTATED RINGERS 1,000 ML IV SCH
[2024-08-19 14:32] VITALS: TEMP 97.3
--- NOTE | 2024-08-19 15:46 | P.PCN ---
Description of Procedure: PROCEDURE 1. Injection of radio contrast material into cervical epidural space, cervical epidurogram, interpretation of cervical epidurogram, Cervical epidural steroid injection under fluoroscopic guidance, C6-7 (fluoroscopy images available in the radiology department ) 2. Cervical epidurogram. PREOPERATIVE DIAGNOSIS: 1- Cervical Degenerative Disc Diseases 2- Cervical radiculopathy., 3-cervical spondylosis with cervical Facet arthropathy without myelopathy.4-cervical spinal stenosis POSTOPERATIVE DIAGNOSIS: : 1- Cervical Degenerative Disc Diseases , 2- Cervical radiculopathy. 3-,cervical spondylosis with cervical Facet arthropathy without myelopathy. 4-cervical spinal stenosis ANESTHESIA: Local anesthetics infiltration. In the OR continuous pulse ox, EKG, blood pressure and verbal communication was maintained. EBL : None PROCEDURE INDICATION: The patient with neck pain and radiculitis unresponsive to conservative treatment consents for procedure. Discussed the procedure, alternatives and possible complications which may include increased pain, infection, bleeding, nerve damage, paralysis all of which could be permanent. Patient understands and all questions were answered. PROCEDURE DESCRIPTION : After getting consent patient was taken to the OR , positioned in prone position and time out was completed. A pillow was placed under the patients chest to increase the cervical interlaminar space. The cervical area was prepped and draped in the usual sterile fashion. Using anterior-posterior fluoroscopy, interlaminar space was identified and the skin over this site was marked and then infiltrated with 1% lidocaine subcutaneously. Subsequently, a 20-gauge 3-1/2-inch Tuohy epidural needle was inserted and advanced toward the epidural space with the loss of resistance technique using a syringe filled with preservative-free normal saline and guided by AP and lateral fluoroscopy. Negative CSF, negative blood, negative paresthesia. The correct needle position in the epidural space was verified with the injection of 2 mL of the water soluble contrast dye [id number]-[id number] and observing an excellent epidurogram with the epidural spread of the dye, after repeat negative aspiration 3 mL solution was injected which consists of 1 mL of preservative-free normal saline mixed with 2 mL of 20 mg dexamethasone and a washout of epidurogram was seen. Needle was withdrawn intact, skin was cleansed, and bandages were applied. Disposition: Patient tolerated the procedure well. No complication. Patient was placed in supine position and transferred to the recovery room area in stable condition and there was no evidence of upper or lower extremity motor or sensory deficit after the procedure patient was discharged from recovery room after discharge criteria met and home discharge instructions was given by the staff and patient will follow with the pain clinic in 2-4 weeks
[2024-08-19 16:10] VITALS: BP 146/86; PULSE 83; RESP 18
--- NOTE | 2024-08-19 17:58 | FL ---
EXAMINATION TYPE: FL guided pain mgmt statistic Intraoperative/procedural fluoroscopic services were provided. CLINICAL INDICATION:Female, 49 years old with history of Cerv Epid Inj; , PHH FINDINGS: Fluoroscopic images demonstrating cervical epidural injection. No radiographic evidence for complicat ion. Total fluoroscopy time is 12 seconds. DAP: [id number] mGym2 Please see the operative/procedural note for further details. [facility], , 08/19/2024 5:56 PM
== END ==
LOC: ORPAIN 13:06
PROVIDERS: ATTEND Pain Medicine Interventional Pain Medicine
DX: M47.22 Other spondylosis with radiculopathy, cervical region (principal); M48.02 Spinal stenosis, cervical region; M50.323 Other cervical disc degeneration at C6-C7 level; Z79.1 Long term (current) use of non-steroidal anti-inflammatories (NSAID); Z91.048 Other nonmedicinal substance allergy status
CPT/HCPCS: 62321; J1100; Q9967

== ENCOUNTER → 2024-09-15 | Outpatient (CLI) | payer OTHER ==
[2024-09-15 08:23] VITALS: BP 137/91; PULSE 64; RESP 18
--- NOTE | 2024-09-15 14:15 | P.PAINPG ---
Objective - Vital Signs Vital signs: Intake & Output 09/14/24 09/15/24 09/15/24 18:59 06:59 18:59 Weight 64.41 kg PQRS Measure Charge Sheet Comment: HISTORY OF PRESENT ILLNESS: A 49 yr old female presents today w severe and chronic neck pain since fall in Mar 2024 secondary to C4-C7 radiculopathy, spondylosis and C5-C7 facet arthropathy without myelopathy for evaluation s/p JIM C6-C7 #1. Pt states she experienced 80 % pain relief x 3-4 wks s/p procedure. Pt states pain level is provoked at 6 /10 in intensity, constant, localized in the cervical spine, predominantly axial, burning in character w occasional shooting pain towards the shoulders and UEs. Pain is provoked by over activity. Pain is alleviated by PT x 6 wks which ended in May 2024, physician guided home stretches daily since May 2024, heat, ice, medications, topical, daily traction at home, repositioning and rest . Cervical disability score at . Interventional procedures include R Knee Arthroscopy x2, ACL Repair, JIM C6-C7 x1 (09/10) Medications include Tramadol, Ibu REVIEW OF ORGAN SYSTEMS: CONSTITUTIONAL: No fevers or chills. No recent weight loss. NEUROLOGICAL: + numbness and tingling along the distal extremities. No seizure disorders or headaches. MUSCULOSKELETAL: + pain PSYCHIATRIC: Denies current depression or suicidal thoughts. Physical Examinations : Constitutional : Cooperative , not in acute distress . Neurologic : Cranial nerve II to XII intact. No focal neurological deficits. Psychiatric : alert & oriented x 3. Matching mood & appropriate affect. Judgment & insight intact. Musculoskeletal : Cervical Spine Motor strength in the deltoid and biceps: Normal right side. Normal Left side Motor strength biceps and the wrist extensors: Normal right side . Normal left side Motor strength in the triceps muscle: Normal right side. Normal left side Deep tendon reflexes: Normal at the biceps. Normal at Brachioradialis. Normal at triceps Vertebral body tenderness to deep palpation over C6 Cervical facet loading test: positive bilaterally Spurling test: positive bilaterally BL C6-C7 Neck distraction test: positive bilaterally Jeanette sign: positive bilaterally Lumbar spine Motor strength lower extremities ,thigh and legs 5/5 Right side , 5/5 Left side Deep tendon reflexes : Normal Knee Jerk. Normal Ankle Jerk Vertebral body tenderness over Cordon Test positive Lumbar facet Loading Test: positive Right / positive Left Range of motion of the lumbar spine Flexion 30 degrees, extension 10 degrees Straight Leg Raise test: Left/ Right positive at degrees Ana Maria test: positive right / positive left. Severe tenderness over the Sacroiliac joint on the Right / Left sides Gaenslen test: positive bilaterally Seated flexion test: positive bilaterally. Sacral spine : Severe tenderness over the Sacroiliac joint: right side / left side Range of motion: Flexion of the lumbar spine <60 degrees Range of motion: Extension of the lumbar spine <20 degrees Gaenslen's Test positive Ana Maria test: positive right side / left side Thigh Thrust Test Sacral Thrust Test Imaging: MRI non contrast brain/ cervical spine from 06/15/24 reviewed Assessment/ Plan : C4-C7 radiculopathy, spondylosis and C5-C7 facet arthropathy without myelopathy Will manage residual pain and may RTC on an as needed basis. All questions answered. I have spent greater than 30 minutes on patient care today. Dr Burris was available by phone for the evaluation of this patient. The time was used to review the medical records including relevant urine studies and Prescription history (MAPs), review of the available imaging, evaluation and examination of the patient, coordination of care with the medical staff and if applicable referring physicians, as well as creation of the medical record PQRS Narrative: Smoking Status Former smoker Hx Alcohol Use (MH) No Home Medications: Ambulatory Orders Pantoprazole [Protonix] 40 mg PO DAILY 01/22/16 estradioL [Estradiol] 1 mg PO DAILY 01/22/16 traMADol HCL [Tramadol HCl] 50 mg PO TID PRN 01/22/16 Cetirizine HCl [Zyrtec] 10 mg PO DAILY 04/21/19 Ibuprofen [Motrin Ib] 800 mg PO Q8H PRN 04/21/19 Levothyroxine Sodium [Synthroid] 75 mcg PO DAILY 04/21/19 Dextroamphetamine/Amphetamine [Adderall Xr 20 mg Capsule] 20 mg PO DAILY 08/17/24 Controlled Substance Measures - Controlled Substance Measures Is patient prescribed a controlled substance at discharge?: No
== END ==
LOC: PNWHC3 08:08
PROVIDERS: ATTEND Specialist
DX: M47.22 Other spondylosis with radiculopathy, cervical region (principal); Z91.048 Other nonmedicinal substance allergy status; Z87.891 Personal history of nicotine dependence
CPT/HCPCS: 99211